=== PATIENT | female | born 1975 | race American Indian/Alaskan Native ===

== ENCOUNTER 2017-09-07 15:15 | Outpatient (CLI) | payer OTHER ==
--- NOTE | 2017-09-07 20:52 | XRay Report ---
FINAL REPORT PROCEDURE: XR HAND BILAT 2V TECHNIQUE: Bilateral hands, two views HISTORY: RHEUMATOID ARTHIRITIS COMPARISON: No prior studies are available for comparison. FINDINGS: The joint spaces are preserved bilaterally. No osteophytes are seen. No osseous erosions are seen. No acute fracture or dislocation is seen. IMPRESSION: Unremarkable exam
== END 2017-09-07 15:16 | disposition home or self-care (01) ==
LOC: XRAY 15:15
PROVIDERS: ATTEND Rehabilitation Practitioner
DX: M06.841 Other specified rheumatoid arthritis, right hand (principal); M06.842 Other specified rheumatoid arthritis, left hand